=== PATIENT | female | born 1995 | race Caucasian/White ===

== ENCOUNTER 2022-07-22 23:19 | Observation (INO) | payer OTHER ==
[2022-07-23] MEDS ORDERED: ACETAMINOPHEN 1000 MG/100 ML BAG IVPB ONE (00:16)
[2022-07-23] MEDS ORDERED: ACETAMINOPHEN INJECTION 100 ML IVPB ONE (00:48)
[2022-07-23 03:00] LABS: BASO % 0.3 % (0-2.0); HEMATOCRIT 34.7 % (32.4-45.2); HEMOGLOBIN 11.8 GM/dL (10.7-15.3); LYMPH % 12.3 % (8-40); MCH 29.2 pg (25.7-33.7); MCHC 33.9 g/dl (32.0-36.0); MEAN PLT VOLUME 8.3 fl (7.5-11.1); NEUT % 83.4 % (42.8-82.8); PLATELET COUNT 228 10^3/uL (134-434); RBC 4.03 M/mm3 (3.60-5.2); RDW 12.3 % (11.6-15.6)
[2022-07-23 03:07] LABS: INR 1.19 (0.83-1.09); PROTHROMBIN TIME (PATIENT) 13.8 SEC (9.7-13.0)
[2022-07-23 03:10] LABS: ACTIVATED PTT 33.7 SECONDS (25.2-36.5)
[2022-07-23] MEDS ORDERED: IBUPROFEN 400 MG TABLET (FP) PO ONE ×2 (03:30→03:46)
[2022-07-23 03:34] LABS: POTASSIUM 4.1 mmol/L (3.5-5.1)
[2022-07-23 03:36] LABS: ALBUMIN 3.7 g/dl (3.4-5.0); BLOOD UREA NITROGEN 10.1 mg/dL (7-18); CALCIUM 9.1 mg/dL (8.5-10.1)
[2022-07-23 03:39] LABS: CREATININE 0.7 mg/dL (0.55-1.3)
[2022-07-23 03:41] LABS: TOT PROT 7.4 g/dl (6.4-8.2)
[2022-07-23 03:48] LABS: BILIRUBIN,TOTAL 0.3 mg/dL (0.2-1)
[2022-07-23 03:49] LABS: URINE APPEARANCE CLEAR; URINE BILIRUBIN NEGATIVE (NEGATIVE); URINE COLOR YELLOW; URINE GLUCOSE (UA) NEGATIVE (NEGATIVE); URINE KETONE 1+ (NEGATIVE); URINE LEUK ESTERASE NEGATIVE (NEGATIVE); URINE NITRITE NEGATIVE (NEGATIVE); URINE PROTEIN NEGATIVE (NEGATIVE); URINE UROBILINOGEN 0.2 mg/dL (0.2-1.0)
[2022-07-23] MEDS ORDERED: ONDANSETRON 4 MG/2 ML VIAL IVPUSH PRN (04:57)
[2022-07-23] MEDS ORDERED: KETOROLAC TROMETHAMINE 15 MG/ML VIAL ONE (05:59)
[2022-07-23] MEDS ORDERED: KETOROLAC TROMETHAMINE 15 MG/ML VIAL IVPUSH PRN (06:00)
[2022-07-23] MEDS: SODIUM CHLORIDE 1,000 ML IV SCH ×2 (06:02→21:29)
[2022-07-23] MEDS ORDERED: morphine CARPU-JECT 2 MG/1 ML DISP.SYRIN IVPUSH ONE (06:16)
[2022-07-23] MEDS ORDERED: IBUPROFEN 400 MG TABLET (FP) PO SCH (06:30)
[2022-07-23 07:14] LABS: BASO % 0.2 % (0-2.0); HEMATOCRIT 32.2 % (32.4-45.2); HEMOGLOBIN 11.3 GM/dL (10.7-15.3); LYMPH % 17.8 % (8-40); MCH 30.2 pg (25.7-33.7); MCHC 35.2 g/dl (32.0-36.0); MEAN CELL VOLUME 85.8 fl (80-96); MEAN PLT VOLUME 9.1 fl (7.5-11.1); MONO % 5.4 % (3.8-10.2); NEUT % 76.6 % (42.8-82.8); PLATELET COUNT 220 10^3/uL (134-434); RBC 3.75 M/mm3 (3.60-5.2); RDW 12.4 % (11.6-15.6); WHITE BLOOD COUNT 9.5 K/mm3 (4.0-10.0)
[2022-07-23 07:54] LABS: POTASSIUM 4.1 mmol/L (3.5-5.1)
[2022-07-23 07:56] LABS: CALCIUM 8.9 mg/dL (8.5-10.1)
[2022-07-23 07:57] LABS: ALBUMIN 3.7 g/dl (3.4-5.0); BLOOD UREA NITROGEN 8.4 mg/dL (7-18); MAGNESIUM 1.7 mg/dL (1.8-2.4)
[2022-07-23 08:00] LABS: CREATININE 0.7 mg/dL (0.55-1.3); PHOSPHOROUS 3.3 mg/dL (2.5-4.9)
[2022-07-23 08:01] LABS: TOT PROT 7.4 g/dl (6.4-8.2)
[2022-07-23 08:02] LABS: BILIRUBIN,TOTAL 0.4 mg/dL (0.2-1)
[2022-07-23 08:41] VITALS: BMI 26.2
[2022-07-23] MEDS: PANTOPRAZOLE 20 MG TABLET PO SCH (10:14)
[2022-07-23] MEDS: ENOXAPARIN NA (PORCINE) 40 MG/0.4 ML DISP.SYRIN SQ SCH (10:14)
[2022-07-23] MEDS: ACETAMINOPHEN 325 MG TABLET (FP) PO PRN ×2 (10:51→18:20)
[2022-07-23] MEDS: IBUPROFEN 400 MG TABLET (FP) PO SCH ×2 (14:26→21:29)
[2022-07-24] MEDS: IBUPROFEN 400 MG TABLET (FP) PO SCH ×2 (05:02→13:59)
[2022-07-24] MEDS: SODIUM CHLORIDE 1,000 ML IV SCH (05:04)
[2022-07-24 09:03] LABS: BASO % 0.5 % (0-2.0); EOS % 1.4 % (0-4.5); HEMATOCRIT 33.8 % (32.4-45.2); LYMPH % 29.8 % (8-40); MCH 28.9 pg (25.7-33.7); MCHC 32.6 g/dl (32.0-36.0); MEAN CELL VOLUME 88.6 fl (80-96); MEAN PLT VOLUME 8.9 fl (7.5-11.1); MONO % 10.3 % (3.8-10.2); PLATELET COUNT 216 10^3/uL (134-434); RBC 3.82 M/mm3 (3.60-5.2); RDW 12.2 % (11.6-15.6); WHITE BLOOD COUNT 8.3 K/mm3 (4.0-10.0)
[2022-07-24 09:10] LABS: ACTIVATED PTT 31.4 SECONDS (25.2-36.5)
[2022-07-24 09:11] LABS: INR 1.22 (0.83-1.09); PROTHROMBIN TIME (PATIENT) 14.1 SEC (9.7-13.0)
[2022-07-24 09:18] VITALS: RESP 18
[2022-07-24 09:28] LABS: POTASSIUM 4.2 mmol/L (3.5-5.1)
[2022-07-24 09:33] LABS: ALBUMIN 3.1 g/dl (3.4-5.0)
[2022-07-24 09:34] LABS: BLOOD UREA NITROGEN 6.5 mg/dL (7-18); CALCIUM 8.2 mg/dL (8.5-10.1); MAGNESIUM 1.7 mg/dL (1.8-2.4)
[2022-07-24 09:37] LABS: CREATININE 0.7 mg/dL (0.55-1.3); PHOSPHOROUS 2.8 mg/dL (2.5-4.9)
[2022-07-24 09:38] LABS: BILIRUBIN,TOTAL 0.5 mg/dL (0.2-1); TOT PROT 6.3 g/dl (6.4-8.2)
[2022-07-24] MEDS: ENOXAPARIN NA (PORCINE) 40 MG/0.4 ML DISP.SYRIN SQ SCH (10:00)
[2022-07-24] MEDS: PANTOPRAZOLE 20 MG TABLET PO SCH (10:00)
[2022-07-24] MEDS ORDERED: MAGNESIUM SULF 50% (8.12 MEQ/2 ML-1 GM VIAL) IVPB ONE (10:00)
[2022-07-24] MEDS: ACETAMINOPHEN 325 MG TABLET (FP) PO PRN (10:01)
[2022-07-24 14:43] VITALS: BP 120/59; PULSE 73; TEMP 98.3
== END 2022-07-24 16:10 | disposition home or self-care (01) ==
LOC: JER 23:19 → JERBED 07-23 03:36 → INTOOBSV 07-23 03:36 → UNDOADMOB 07-23 03:36 → JERBED 07-23 04:51 → J7W 07-23 07:05
PROVIDERS: ADMIT Internal Medicine; ATTEND Internal Medicine
PROC: 3E0333Z Introduction of Anti-inflammatory into Peripheral Vein, Percutaneous Approach (ICD-10-PCS; principal; 2022-07-23)
PROC: 3E033NZ Introduction of Analgesics, Hypnotics, Sedatives into Peripheral Vein, Percutaneous Approach (ICD-10-PCS; 2022-07-23)
PROC: 3E033GC Introduction of Other Therapeutic Substance into Peripheral Vein, Percutaneous Approach (ICD-10-PCS; 2022-07-23)
PROC: 3E0337Z Introduction of Electrolytic and Water Balance Substance into Peripheral Vein, Percutaneous Approach (ICD-10-PCS; 2022-07-23)
PROC: 3E013GC Introduction of Other Therapeutic Substance into Subcutaneous Tissue, Percutaneous Approach (ICD-10-PCS; 2022-07-23)
DX: N83.291 Other ovarian cyst, right side (principal); R10.31 Right lower quadrant pain
CPT/HCPCS: 36415; 76830-TC; 80053; 81003; 83690; 83735; 84100; 84703; 85025; 85610; 85730; 86850; 86900; 86901; 87086; 87635; 96372; 96374; 96375; 96376; 99285-25; G0378